=== PATIENT | female | born 1970 | race Caucasian/White ===

== ENCOUNTER → 2019-02-13 | Outpatient (CLI) | payer BC ==
--- NOTE | 2019-02-13 11:10 | Diagnostic Imaging Report ---
Renal ultrasound with Doppler examination, 02/13/2019. History: Hypertension. Comparison: None available. Discussion: Transverse and longitudinal imaging of the kidneys demonstrates normal renal sizes and echogenicity bilaterally with the right kidney measuring 10.3 and the left kidney measuring 10.3 cm in length. Renal cortex measures 2.4 and 1.7 cm respectively. There is no evidence of hydronephrosis, renal calculus, or solid mass. Bilateral ureteral jets were visualized. Bladder volume measures 78 mL. Interrogation of the proximal and distal renal arteries and veins using grayscale, color Doppler, and spectral wave form analysis was performed. Findings are as follows: Patent renal veins are noted bilaterally. Right: Proximal renal artery: Peak systolic velocity = 59.4 cm/sec, RAR (renal artery aortic ratio) = 1.3 Segmental and interlobar renal arteries: Normal appearing waveforms are present. Left: Proximal renal artery: Peak systolic velocity = 68.0 cm/sec, RAR (renal artery aortic ratio) = 1.4 Segmental and interlobar renal arteries: Normal appearing waveforms are present. IMPRESSION: 1. Normal kidneys. 2. No Doppler evidence of renal artery stenosis. Signed by: Gerardo Shepard on 02/13/2019 11:06 AM
== END ==
LOC: US 08:07
PROVIDERS: ATTEND Internal Medicine
DX: I10 Essential (primary) hypertension (principal); N17.9 Acute kidney failure, unspecified
CPT/HCPCS: 76770; 93976